=== PATIENT | male | born 1950 | race Caucasian/White ===

== ENCOUNTER 2019-04-19 10:19 | Outpatient (CLI) | payer MEDICARE, SELFPAY ==
--- NOTE | 2019-04-19 10:29 | CT_ITS ---
WS: [id number] CT of the lumbar spine, additional two-dimensional coronal and sagittal imaging was obtained. 04/19/19 Clinical Data: INTERVERTEBRAL DISC DISORDER Comparison: MRI lumbar spine, 03/29/2019. DLP: 2109.[address] scans at [facility] use at least one of these dose optimization techniques: automat ed exposure control; mA and/or kV adjustment per patient size (includes targeted exams where dose is matched to clinical indication); or iterative reconstruction. Findings: Osteoarthritic change of the lumbar spine is present from L2 through L5. There is anterior and posterior osteoarthritic spurring at L2-L3, L3-L4 and L4-L5. There is degenerative disc disease a t L2-L3, L3-L4 and L5-S1. No compression fractures are seen. There is a retrolisthesis of L3 on L4 of 0.3 cm. The transverse processes and SI joints are nonremarkable. There is significant facet joint a rthritis from L2-L3 through L5-S1. There is atherosclerotic change of the abdominal aorta. There is a localized levoscoliosis of the lower lumbar spine from L2 through L5. T12-L1: No canal stenosis, disc bulge or foraminal narrowing is seen. L1-L2: There is minimal disc bulging with facet joint arthritis causing mild canal and foraminal sten osis. L2-L3: There is severe posterior degenerative arthritic change along with facet joint hypertrophy and arthritis causing canal and foraminal stenosis. L3-L4: There is retrolisthesis causing canal stenosis along with severe facet joint arthritis causing foraminal stenosis. L4-L5: There is posterior osteophyte formation causing canal stenosis along with degenerative arthrit is of the facet joints causing foraminal stenosis. L5-S1: Minimal disc bulging causes mild canal stenosis along with facet joint arthritis causing gina inal stenosis. CT/CT lumbar spine wo con* [id number] Impression: 1. Severe osteoarthritis of the vertebral bodies from L2 through L5 with accomp anying degenerative disc disease. 3. Retrolisthesis of 0.3 cm of L3 on L4. 3. Multilevel disc bulge, osteophyte formation and facet joint arthritis causin g canal and foraminal stenosis.
== END 2019-04-19 10:20 | disposition home or self-care (01) ==
LOC: RAD 10:24
PROVIDERS: Family Provider Family Medicine; PCP Family Medicine; Visit Provider Licensed Practical Nurse
DX: M51.17 Intervertebral disc disorders with radiculopathy, lumbosacral region (principal); M47.896 Other spondylosis, lumbar region; M51.26 Other intervertebral disc displacement, lumbar region; M25.78 Osteophyte, vertebrae
CPT/HCPCS: 72131

== ENCOUNTER 2019-04-23 09:53 | Outpatient (CLI) | payer MEDICARE, SELFPAY ==
--- NOTE | 2019-04-23 | XR_ITS ---
WS: [id number] CERVICAL SPINE TECHNIQUE: 3 views of the cervical spine CLINICAL INFORMATION: CERVICAL MYELOPATHY COMPARISON: None. FINDINGS: Straightening of the normal cervical lordosis. Normal C1-C2 articulation. Advanced spondylitic change s. Slight anterolisthesis C2 on C3 and C3 on C4 in neutral measuring 2.7 mm at C2-3 and 3.7 mm at C3- C4. No significant instability on flexion-extension. Multilevel moderate bony foraminal narrowing thr oughout the cervical spine with moderate to advanced facet arthropathy. XR/XR cervical spine min 6V [id number] IMPRESSION: 1. Straightening of the normal cervical lordosis with advanced spondylitic tenzin nges. 2. 2. 3 mm anterolisthesis C2 on C3 and C3 on C4. No significant instability. 3. Disc space narrowing worse at C5-C6 and C6-C7. 4. Multilevel moderate bony foraminal narrowing with moderate to advanced fac et arthropathy throughout the cervical spine.
== END 2019-04-23 09:54 | disposition home or self-care (01) ==
LOC: RADOUTREAD 11:10
PROVIDERS: Family Provider Family Medicine; PCP Family Medicine; Visit Provider Family Medicine
DX: G95.9 Disease of spinal cord, unspecified (principal); M47.892 Other spondylosis, cervical region; M50.00 Cervical disc disorder with myelopathy, unspecified cervical region

== ENCOUNTER 2019-04-23 10:14 | Outpatient (CLI) | payer MEDICARE, SELFPAY | END 2019-04-23 10:15 | disposition home or self-care (01) | LOC: RADWPI 04-24 09:36 | PROVIDERS: Family Provider Family Medicine; PCP Family Medicine; Visit Provider Family Medicine | DX: I73.9 Peripheral vascular disease, unspecified (principal); I71.4 Abdominal aortic aneurysm, without rupture ==

== ENCOUNTER 2019-05-02 10:33 | Outpatient (CLI) | payer MEDICARE, SELFPAY ==
--- NOTE | 2019-05-02 10:41 | MR_ITS ---
WS: [id number] MRI CERVICAL SPINE HISTORY: GERMAN SIGN PRESENT COMPARISON: None available. Straightening of the normal cervical lordosis. Advanced degenerative changes throughout the cervical spine. Disc space narrowing with osteophytes an d osteophytic ridging most significant at C4-C7. Abnormal signal in the cervical cord or myelomalacia . Abnormal signal begins at the C6 level. Extends over a length of 2.8 cm. Craniocervical junction, C1 and C2 relationship, odontoid process and soft tissues are normal. C2-C3: Diffuse osteophytic ridging and annular disc bulging. Central disc protrusion with moderate LE FT and mild RIGHT foraminal stenosis. C3-C4: Severe annular disc bulging with osteophytic ridging. Near complete effacement of CSF. Osteoph ytes extend into the foramen with facet arthropathy causing severe bilateral foraminal stenosis. Post erior displacement of the LEFT nerve roots. C4-C5: Marked osteophytic ridging and annular disc bulging and facet arthropathy. Central disc protru brian. Mild central stenosis and RIGHT foraminal stenosis. Severe LEFT foraminal stenosis and posterio r displacement of the nerve roots. C5-C6: Effacement of CSF due to combination of disc disease, facet disease and annular disc bulging. Severe central and bilateral foraminal stenosis. C6-C7: Severe osteophytic ridging, facet disease and disc disease. Severe central and bilateral gina inal stenosis. C7-T1: Osteophytic ridging and facet arthropathy. Mild bilateral foraminal stenosis. T1-T2: Annular disc bulging and osteophytes. Suspect mild foraminal stenosis. Paraspinal soft tissue are normal. MR/MR cervical spin wo con* [id number] IMPRESSION: 1. Severe spondylitic changes throughout the cervical spine. Multilevel stenos es due to combination of facet disease, osteophytes and disc bulging. 2. Cervical myelomalacia extends over length of 2.8 cm centered at the C6-7 le brennen. 3. Severe central and bilateral foraminal stenosis at C5-6 and C6-7 due to com bination of disc disease, facet and osteophyte disease. 4. Severe LEFT foraminal stenosis at C4-5. 5. Severe bilateral foraminal stenosis at C3-4. 6. Moderate LEFT foraminal stenosis at C2-3. Mild central and RIGHT foraminal stenosis at C4-5.
== END 2019-05-02 10:34 | disposition home or self-care (01) ==
LOC: RADSHAW 10:36
PROVIDERS: Family Provider Family Medicine; PCP Family Medicine; Visit Provider Family Medicine
DX: M47.892 Other spondylosis, cervical region (principal); G95.89 Other specified diseases of spinal cord; M48.02 Spinal stenosis, cervical region; R29.2 Abnormal reflex
CPT/HCPCS: 72141

== ENCOUNTER 2019-05-06 09:15 | Outpatient (CLI) | payer MEDICARE, SELFPAY ==
--- NOTE | 2019-05-06 09:32 | CT_ITS ---
WS: [id number] CTA ABDOMINAL AORTA WITH RUNOFF TECHNIQUE: Contrast enhanced CTA of the abdominal aorta with bilateral lower extremity runoff. Multip lanar reformatted images were obtained. MIP reformats were also reviewed. CLINICAL INFORMATION: PERIPHERAL ARTERY DISEASE COMPARISON: None. DLP: 1449.[address] scans at [facility] use at least one of these dose optimization techniques: automat ed exposure control; mA and/or kV adjustment per patient size (includes targeted exams where dose is matched to clinical indication); or iterative reconstruction. FINDINGS: Lung bases are well aerated. Diffuse fatty infiltration liver. Portal vein and splenic vein are patent. Normal spleen. Small esophageal hiatal hernia. Adrenal glands are normal. Bilateral dain l cysts. Large left renal calculus measuring 19 mm. No hydronephrosis. Celiac and SMA are patent at the origins with calcification. Both proximal renal arteries are patent. Moderate to severe stenosis left renal artery origin. Aortic calcification. Small abdominal aortic a neurysm measuring 2.2 x 1.9 CM. Right POLY. Prostate calcification. RIGHT: Right common iliac artery is patent. External and internal iliac arteries are patent. Mild mitzy cified atheromatous disease. Right POLY degrades some images. Moderate to severe narrowing right commo n femoral artery at the level of the hip joint. Images are degraded in this area. Approximately 50% n arrowing at the right superficial femoral artery origin. SFA is somewhat diminutive but patent to the popliteal. Dense calcification in the popliteal artery at the adductor hiatus with multisegmental na rrowing. This is nearly occluded above the knee with a tiny patent popliteal to the trifurcation. Thr ee-vessel runoff to the ankle with a tiny anterior tibial component. LEFT: Left common iliac artery is patent. External and internal iliac arteries are patent. Common fem oral artery is patent. Approximately 40% narrowing at the SFA origin. Deep femoral artery is patent. Superficial femoral artery demonstrates mild to moderate segmental narrowing with a short segment of high-grade narrowing in the mid thigh. Superficial femoral artery remains patent to the adductor hiat us. Moderate to severe segmental narrowing involving the popliteal artery which appears patent to the trifurcation. Relatively normal three-vessel runoff to the ankle. 2. RIGHT: Moderate to severe stenosis involving the common femoral artery at the level of the femora l head. Images are degraded in this area due to artifact from hardware. 3. Approximately 40% narrowing at the RIGHT superficial femoral artery origin. SFA remains patent in the thigh. 4. Multisegment moderate to severe narrowing involving the RIGHT popliteal artery with near occlusio n ervft-ovc-lobe. 5. Three-vessel runoff to the RIGHT ankle with diminutive anterior tibial artery. 6. LEFT: Approximately 40% narrowing of the left SFA origin. High-grade stenosis in the left SFA in the mid thigh which remains patent. Moderate to severe multisegmental stenosis involving the poplitea l artery. 7. Three-vessel runoff to the LEFT ankle. 8. Moderate to severe stenosis left renal artery origin. Normal renal parenchymal enhancement bilate rally. Right renal artery origin is patent. CT/CT angio abd aorta runof [id number] IMPRESSION: 1. Slightly aneurysmal infrarenal abdominal aorta measuring 2.2 x 1.9 cm (AP b y transverse.
[2019-05-06 10:07] LABS: Blood Urea Nitrogen 16 mg/dL (8-23); Glomerular Filtration Rate 66.2 mL/min (90-130)
[2019-05-06] MEDS: iohexol 350 mg/mL 100 mL Btl IV (10:08)
== END 2019-05-06 09:16 | disposition home or self-care (01) ==
LOC: RADWPI 09:20
PROVIDERS: Family Provider Family Medicine; PCP Family Medicine; Visit Provider Internal Medicine Cardiovascular Disease
DX: I73.9 Peripheral vascular disease, unspecified (principal); I71.4 Abdominal aortic aneurysm, without rupture
CPT/HCPCS: 75635; 82565; 84520; Q9967

== ENCOUNTER 2019-05-30 16:18 | Inpatient (IN) | payer MEDICARE, SELFPAY ==
--- NOTE | 2019-05-29 13:46 | ECG_ITS ---
Measurements Intervals [place] Rate: 90 P: 74 NC: 154 QRS: 62 QRSD: 82 T: 77 QT: 325 QTc: 399 SINUS RHYTHM No previous ECG available for comparison Electronically Signed On 05-29-2019 17:30:18 EQUIPMENT ANALYST by Barbara Aaron M.D. [email or web address]
[2019-05-29 13:47] VITALS: BMI 28.3
--- NOTE | 2019-05-29 13:55 | ANES.PREANE2 ---
Pre-Anesthetic Assessment Pre-Anesthetic Assessment: Height/Weight: Height 1.8 m Weight 92.079 kg Preop Diagnosis: vertebral fractures Proposed Procedure: Operation Date: 05/30/19 09:40 Proposed Procedures p C5-C6, C6-C7 ACDFF with C6 corpectomy ([id number]) M50.020(Not Applicable) - Dayday Clement MD s Corpectomy(Not Applicable) - Dayday Clement MD Familial anesthetic complications: Woke up slowly after anesthesia Social: Social History: No alcohol and No tobacco Comment: former smoker - quit 3 years ago Airway: Cervical ROM: WNL MP: 3 Dentition: False Pulmonary: Pulmonary: COPD Comments: used to wear oxygen CV/HEM: CV/HEM: HTN : : None reported Hepatic: Hepatic: None reported GI: GI: None reported Metabolic: Metabolic: DM Musc/skel: Musc/skel: Lower Back Pain Neuropsych: Neuropsych: None reported Anesthetic Plan: ASA status: 3 Anesthesia: General PFSH Anesthesia PFSH: Medical History (Updated 05/20/19 @ 10:18 by Dayday Clement MD) Cervical disc disorder with myelopathy of mid-cervical region Cervical spinal stenosis Diabetes Hypertension Spondylolisthesis of cervical region Surgical History (Updated 05/20/19 @ 10:14 by Dayday Clement MD) History of cholecystectomy History of lumbar surgery (~01/09/01) History of right hip replacement Family History (Updated 05/20/19 @ 10:03 by Susannah Whatley LPN) Mother Cancer Father CAD (coronary artery disease) Social History (Updated 05/20/19 @ 10:04 by Susannah Whatley LPN) Smoking and tobacco status: former smoker Alcohol intake: former Lives independently: Yes Household members: spouse Marital status: Current occupational status: retired Current occupation: retired Data Anesthesia Cardiac Studies: No Data to Display
[2019-05-30] VITALS (22 sets, daily range): BP systolic 115–160; BP diastolic 49–85; PULSE 91–105; RESP 16–20; TEMP 36.2–37.1; O2SAT 88–97
[2019-05-30] MEDS: sodium chloride 0.9% 1,000 ML 30 ML IV (08:36)
[2019-05-30 10:03] LABS: Glucose Point of Care 156 mg/dL (70-110)
--- NOTE | 2019-05-30 10:31 | W.PM.OPSUD ---
Surgery/Procedure H&P Update DATE OF PROCEDURE: May 30, 2019 DATE H&P PERFORMED: 05/20/19 H&P UPDATE INFORMATION: I have reviewed H&P completed within last 30 days PREOP DIAGNOSIS: Intervertebral disc disorder with myelopathy, mid cervical region PRIMARY INDICATION FOR PROCEDURE: Neck pain and upper extremity symptoms PLANNED PROCEDURE: Operation Date: 05/30/19 09:40 Proposed Procedures C5-C6, C6-C7 ACDFF with C6 corpectomy ([id number]) M50.020(Not Applicable) - Dayday Clement MD
--- NOTE | 2019-05-30 11:04 | P.OP_ITS ---
Brief Operative Note: Date of procedure: 05/30/19 Pre-op diagnosis: Intervertebral disc disorder with myelopathy Post-op diagnosis: same (with instability of joint and collapse of vertebra) Procedure Done: C6 corpectomy, C5-C7 anterior fusion/fixation, Bengal Cage prosthesis Surgeon: Dayday Clement Estimated blood loss (mL): 100 Complications: None Post-op Plan: PACU, then surgical cardoza Condition: stable Disposition: PACU Coding Level of Care Code Acute Topographical Surveyor for Rody Tucker
--- NOTE | 2019-05-30 11:13 | XR_ITS ---
WS: [id number] XR cervical spine 1Vport [id number] REASON FOR EXAM: surgery FINDINGS: Lateral localization projection shows a marker at the C4-5 level. XR/XR cervical spine 1Vport 92345 IMPRESSION: Marker at the C4-5 level.
--- NOTE | 2019-05-30 11:47 | XR_ITS ---
WS: [id number] XR cervical spine 1Vport [id number] REASON FOR EXAM: SURGERY FINDINGS: Lateral intraoperative localization views show a marker at the C5-6 level the remaining lat eral cervical spine essentially normal the endotracheal tube is seen in good position. XR/XR cervical spine 1Vport [id number] IMPRESSION: Intraoperative marker C5-C6 level anteriorly.
--- NOTE | 2019-05-30 11:49 | SUR.OPER ---
Family Notified Of Patient's Status Via Phone.
--- NOTE | 2019-05-30 13:37 | SUR.OPER ---
Family Notified Of Patient's Status Via Phone.
--- NOTE | 2019-05-30 14:06 | XR_ITS ---
WS: [id number] XR cervical spine 1Vport [id number] REASON FOR EXAM: surgery FINDINGS: The interspace C5 and C6 is localized with a lateral projection interoperative spacers appe ar to be evident now. XR/XR cervical spine 1Vport [id number] IMPRESSION: Successful dilatation interspace C5-C6.
--- NOTE | 2019-05-30 14:53 | XR_ITS ---
WS: [id number] XR cervical spine 1Vport [id number] REASON FOR EXAM: surgery FINDINGS: Intraoperative lateral of the cervical spine now shows a spacer present between C5 and 6 wi th fusion anteriorly C5-C6-C7 the plate is satisfactory alignment. XR/XR cervical spine 1Vport 56449 IMPRESSION: Anterior fusion C5-C6-C7.
--- NOTE | 2019-05-30 15:27 | XR_ITS ---
WS: [id number] XR cervical spine 3V* [id number] REASON FOR EXAM: postop FINDINGS: Postop evaluation shows the plate across the C5-C6-C7 with intraspinal fusion. The alignmen t is satisfactory through these areas. There is spurring seen between C4 and 5 anteriorly but the overall alignment of the cervical spine is normal. XR/XR cervical spine 3V* [id number] IMPRESSION: Postop interspinal fusion C5-C6-C7 with intraspinal spacers.
[2019-05-30 15:40] LABS: Glucose Point of Care 155 mg/dL (70-110)
[2019-05-30] MEDS: fentaNYL 50 mcg/mL INJ 2mL IVP ×2 (15:58→16:03)
[2019-05-30] MEDS: ketorolac 30 mg/mL INJ 15 MG IVP ×2 (16:05→20:53)
--- NOTE | 2019-05-30 16:19 | SUR.PHASEI ---
1530 PT TO PACU AWAKE RESTLESS TRYING TO SIT UP PT CONFUSED BUT REORIENTS EASILY WANTS TO VOID, PT REMINDED OF MEYER CATH RECENTLY REMOVED PT ASSISTED TO RELAX AND LAY STILL. VSS NECK DRESSING D/I NO BLEEDIND OR SWELLING NOTED C COLLAR IN PLACE PT ABLE TO MOVE ALL EXT TO COMMAND, 1540 PT C/O OF NO NECK PAIN BUT RT SHOULER PAIN WITH MOVEMENT ONLY 1550 X RAY HERE PT VERY ALERT ORIENTED AND ASSISTED WARM BLANKETS TO RT SHOULDER PT C/O OF PAIN , NOW WITHOUT MOVING AFTER X RAY SEE MEDS GIVEN 1600CRNA W. SMART AT BEDSIDE SEE TORDOL ORDER, 1615 PT ALERT MORE RELAXED TAKING OCC ICE CHIPS ATTEMPTED TO CALL REPORT TO FLOOR,
--- NOTE | 2019-05-30 18:46 | P.PN_ITS ---
Subjective Subjective: Interval history: I am sore. Reports paresthesias in left hand. Vitals/I&O/Wt Last Vital Signs Temp 98.4 F 05/30/19 18:42 Pulse 103 H 05/30/19 18:42 Resp 18 05/30/19 18:42 BP 149/72 05/30/19 18:42 Pulse Ox 89 L 05/30/19 18:42 05/30/19 05/30/19 05/30/19 06:59 14:59 22:59 Intake Total 1000 / 1000 340 / 1340 Output Total 500 / 500 Balance 1000 / 1000 -160 / 840 Weight last 48 hrs Weight 203 lb Physical Exam Const: COMMON NORMALS: no apparent distress GENERAL APPEARANCE: cooperative and comfortable Eye: ALIGNMENT: Yes alignment normal Neck/C-Spine: CERVICAL SPINE: Yes collar present NECK IMAGES: 1. surgical incision Resp: COMMON NORMALS: normal respiratory effort EFFORT & INSPECTION: Yes able to speak in complete sentences and No stridor Extremity: LEFT UPPER EXTREMITY: Yes hand & digits (chronic deformities) Neuro: COMMON NORMALS: moves all extremities Psych: COMMON NORMALS: mental status grossly normal, thought process normal and speech normal APPEARANCE: Yes grossly normal ATTITUDE: Yes calm and Yes engaged ACTIVITY/MOTOR BEHAVIOR: Yes appropriate eye contact SPEECH: Yes normal speech MOOD & AFFECT: Yes euthymic mood THOUGHT PROCESS: normal thought process ATTENTION/CONCENTRATION: Yes attention grossly intact INSIGHT: insight good JUDGEMENT: judgment good Skin: WOUNDS: Yes surgical site (left anterolateral neck dressing with scant serosanguineous drainage) Details: other (Dressing changed at bedside. No active drainage or incisional fullness.) Urinary Catheter Management^: Sadler: Cath Placed During This Visit: yes, but has since been removed by the nurse Urinary Catheter Date of Insertion: 05/30/19 Urinary Catheter Time of Insertion: 11:30 Date Urinary Catheter Removed: 05/30/19 Time Urinary Catheter Discontinued: 15:28 Data Other Xray: I personally reviewed and interpreted this imaging study as follows: (C- spine x-rays) My impression: Postop changes of recent C6 corpectomy and C5-C7 fusion/fixation. Limited visualization caudally on lateral view. No noted complication. A&P Assessment and plan (1) Cervical disc disorder with myelopathy of mid-cervical region: Doing well after C6 corpectomy and C5-C7 ACDFF performed earlier today. Suspect shoulder / neck discomfort is related to extended period in position utilized for surgery. Anticipate resolution. Left hand paresthesias will be monitored, and are likewise expected to resolve. Plan completion of postop IV antibiotic doses. Anticipate home tomorrow. Status: Chronic Code(s): M50.020 - Cervical disc disorder with myelopathy, mid-cervical region, unspecified level (2) Instability of joint: Status: Acute Code(s): M25.30 - Other instability, unspecified joint (3) Collapse of vertebra: Status: Acute Code(s): M48.50XA - Collapsed vertebra, not elsewhere classified, site unspecified, initial encounter for fracture Attestations Medical Necessity Statement*: Patient is appropriate for in hospital postoperative care. Coding Level of Care Code Acute Circulation Sales Representative for [facility] Fwd Exam Comprehensive Diagnoses Cervical disc disorder with myelopathy of mid-cervical region M50.020 Instability of joint M25.30 Collapse of vertebra M48.50XA Comment Postop global
[2019-05-30] MEDS: lisinopril 20 mg Tablet PO (19:01)
[2019-05-30] MEDS: docusate sodium 100 mg Capsule PO (19:01)
[2019-05-30] MEDS: HYDROcodone-acetaminophen 5-325 mg Tablet PO ×2 (19:02→23:09)
[2019-05-30] MEDS: cilostazol 100 mg Tablet 50 MG PO (19:53)
[2019-05-30] MEDS: baclofen 10 mg Tablet PO (19:58)
[2019-05-30] MEDS: lactated ringers 1,000 ML 90 ML IV (20:04)
--- NOTE | 2019-05-30 20:26 | PC.NURSE ---
Dressing to patient's neck is dry and intact. Hobbs J collar in place.
[2019-05-30 20:45] LABS: Glucose Point of Care 227 mg/dL (70-110)
[2019-05-31 00:18] VITALS: BP 108/47; PULSE 92; RESP 18; TEMP 36.9; O2SAT 91
[2019-05-31] MEDS: ketorolac 30 mg/mL INJ 15 MG IVP ×2 (02:59→08:45)
[2019-05-31] MEDS: HYDROcodone-acetaminophen 5-325 mg Tablet PO (03:47)
[2019-05-31 04:37] VITALS: BP 104/55; PULSE 84; RESP 18; TEMP 36.8; O2SAT 95
[2019-05-31] MEDS: lactated ringers 1,000 ML 90 ML IV (06:12)
[2019-05-31 06:39] LABS: Glucose Point of Care 221 mg/dL (70-110)
[2019-05-31 08:00] VITALS: BP 119/68; PULSE 76; RESP 18; TEMP 37.1; O2SAT 93
[2019-05-31] MEDS: cilostazol 100 mg Tablet 50 MG PO (08:42)
[2019-05-31] MEDS: atorvastatin 40 mg Tablet 80 MG PO (08:43)
[2019-05-31] MEDS: docusate sodium 100 mg Capsule PO ×2 (08:44)
[2019-05-31] MEDS: lisinopril 20 mg Tablet PO (08:44)
[2019-05-31 08:47] VITALS: PULSE 76; O2SAT 90
[2019-05-31 09:07] VITALS: PULSE 76; O2SAT 90
[2019-05-31 10:12] VITALS: PULSE 76; O2SAT 90
--- NOTE | 2019-05-31 10:54 | P.OP_ITS ---
Operative Report Date of procedure: May 30, 2019 Pre-op Diagnosis: Intervertebral disc disorder with myelopathy, mid cervical region Post-op diagnosis: same (With instability of joint and collapse of vertebra) Procedure Done: 1. C6 corpectomy. 2. C5-C7 placement of intervertebral prosthetic device. 3. C5-C7 anterior plate and screw fixation. 4. C5-C7 anterior fusion utilizing morselized autograft obtained from the osteophytectomy/corpectomy portions of the procedure. Implants: Synthes Vectra plate and screws. Bengal interbody Cage. Specimens removed/disposition: C5-C6, C6-C7 disc Surgeon: Dayday Clement Anesthesia: General Estimated blood loss (mL): 100 IV fluids (mL): 1,100 Urine output (mL): 400 Complications: None. Condition: stable Disposition: PACU Brief History: The patient is a 68-year-old white male with symptomatic, radiographically confirmed cervical disc/joint disease and associated neural impingement. He complained of gait instability, and predominantly right upper extremity symptoms. Imaging studies demonstrated prominent findings at C5-C6 a nd C6-C7, with encroachment posterior to C6. Conservative management did not provide adequate lasting symptom relief. After review of the diagnostic and treatment options with the risks, potential benefits and rationale for each, the patient requested to proceed with surgical intervention. Procedure: After routine preoperative evaluation and informed consent were obtained, the patient was taken to the Operating Room and placed under general endotracheal anesthesia. He was positioned supine and fit in the [place] tongs for the application of in-line cervical traction. The anterolateral neck on the left was prepared with hair clippers. A proposed transverse skin incision was marked with a sterile skin marker, utilizing intraoperative radiography and regional anatomy for localization. The area was scrubbed with Betadine, prepped with DuraPrep, and draped with sterile towels and drapes. [place] surgical barrier was applied. The proposed incision site was infiltrated with 1% Xylocaine with Epinephrine. A skin incision was made and carried down into the subcutaneous tissues. The platysma was identified and divided in the direction of its fibers. A plane was dissected just medial to the carotid sheath and lateral to the midline esophagus and trachea. Prevertebral soft tissues were bluntly dissected free of the anterior margin of the cervical spine. Longus coli muscles were freed from their medial attachments. Deep self-retaining retractors were placed. Intraoperative radiography verified the desired surgical levels. The C5-C6 and C6-C7 interspaces were sequentially incised with a #11 blade. Discectomies were accomplished utilizing various curettes and pituitary rongeurs. Anterior marginal osteophytes were resected with the [place] and [place] rongeurs. Cartilaginous end plates were stripped free with curettes. Posterior marginal osteophytes were resected with thin foot plate Kerrison rongeurs. The medial aspects of the neural foramina were enlarged in a similar manner. Posterior longitudinal ligament was divided and resected as necessary to further the decompression. Due to extensive bony overgrowth of the disc space and marginal osteophyte contribution to neural impingement, the [employer] [place] high- speed drill with ely valenitn was utilized to complete the osteophytectomy portions of the procedure. Probing posterior to the C6 vertebral body confirmed residual canal compromise. The decision was made to proceed with a corpectomy. A corpectomy was completed utilizing various rongeurs and the [employer] Hunter high-s peed drill with ely bur. The drill was also utilized for endplate preparation. Once the decompression was felt to be adequate, the corpectomy defect was sized. A 24 mm lordotic Synthes Bengal Cage was chosen. The Cage was packed with morselized autograft obtained from the osteophytectomy portions of the procedure. The Cage was placed within the corpectomy defect while in-line cervical traction was applied via the [place] tongs. Once the Cage was felt to be in good position, a Synthes Vectra plate of the desired size was chosen. The plate was bent to match the curvature of the patient's cervical spine utilizing the plate merchant. The plate was secured to the C5 and C7 vertebral bodies with bilateral 4.5 mm x 16 mm self-drilling screws. Final screw tightening was performed, and the locking mechanisms within the plate were noted to engage the screws at each site. The construct was inspected, radiographically evaluated, and felt to be in good position and secure. The wound was copiously irrigated with sterile saline and antibiotic irrigation. Hemostasis was ensured with the bipolar electrocautery and Surgi-Jim hemostatic matrix. Wound closure was performed in multiple layers with 2-0 Vicryl Plus simple interrupted closure of the platysma and deep dermis as separate layers. Final skin closure was performed with 4-0 Vicryl Plus in a running subcuticular pattern. Steri-Strips were applied, and a sterile dressing was placed. The patient was released from the [facility] and fit in a [place] collar. He was transferred onto the Recovery Room cart in the supine position. He was extubated without incident. The patient tolerated the procedure well. All sponge, needle, and instrument counts were correct at the completion of the procedure.
--- NOTE | 2019-05-31 11:18 | P.DS_ITS ---
Discharge Providers Date of Admission: 05/30/19 16:18 Date of Discharge: May 31, 2019 Attending Provider at Admission: Dayday Clement MD Attending Provider at Discharge: Dayday Clement MD Primary Care Provider: Jason Mcdaniel MD Diagnoses at Discharge Discharge Diagnosis (1) Cervical disc disorder with myelopathy of mid-cervical region: Status: Chronic Problem details: Patient is doing well after C6 corpectomy with C5-C7 anterior fusion/fixation performed yesterday. He reports resolution of the left hand paresthesias reported yesterday evening. He appears reasonable for discharge home today, as requested. (2) Instability of joint: Status: Acute (3) Collapse of vertebra: Status: Acute Reason for Visit Reason for Visit: Reason For Visit: M50.020 Brief History: The patient is a 68-year-old white male with symptomatic, radiographically confirmed cervical disc/joint disease and associated neural impingement. He complained of gait instability, and predominantly right upper extremity symptoms. Imaging studies demonstrated prominent findings at C5-C6 and C6-C7, with encroachment posterior to C6. Conservative management did not provide adequate lasting symptom relief. After review of the diagnostic and treatment options with the risks, potential benefits and rationale for each, the patient requested to proceed with surgical intervention. Hospital Course Hospital Course: The patient underwent a C6 corpectomy, with C5-C7 anterior fusion and fixation, on 05/30/2019. He tolerated the procedure well, and reported improvement in preoperative symptoms following surgery. He complained of neck/shoulder stiffness and pain, and left hand paresthesias on the evening of the date of surgery. The paresthesias had resolved and the pain/stiffness had significantly improved by the morning of postoperative day #1. He completed preoperative and postoperative intravenous antibiotic doses, and the physical therapy postoperative spine protocol. He was ambulatory, voiding, and tolerating a diabetic diet prior to discharge home. Physical Exam Const: COMMON NORMALS: no apparent distress GENERAL APPEARANCE: cooperative and comfortable Eye: ALIGNMENT: Yes alignment normal Neck/C-Spine: CERVICAL SPINE: Yes collar present NECK IMAGES: 1. surgical incision Resp: COMMON NORMALS: normal respiratory effort EFFORT & INSPECTION: Yes able to speak in complete sentences and No stridor Neuro: COMMON NORMALS: moves all extremities GAIT: Yes other (Ambulates unassisted) MOTOR EXAM: strength 5/5 throughout (Bilateral upper extremities) Psych: COMMON NORMALS: mental status grossly normal and speech normal AT TITUDE: Yes calm and Yes engaged ACTIVITY/MOTOR BEHAVIOR: Yes appropriate eye contact SPEECH: Yes normal speech MOOD & AFFECT: Yes euthymic mood INSIGHT: insight good JUDGEMENT: judgment good Skin: WOUNDS: Yes surgical site (Left anterolateral neck surgical site dressing clean/dry/intact) Urinary Catheter Management^: Sadler: Cath Placed During This Visit: yes, but has since been removed by the nurse Urinary Catheter Date of Insertion: 05/30/19 Urinary Catheter Time of Insertion: 11:30 Date Urinary Catheter Removed: 05/30/19 Time Urinary Catheter Discontinued: 15:28 Discharge Data Data Completed and Pending: Completed Studies During Hospitalization Category Date Time Status XR cervical spine 1 view portable [ XR cervical spine Exams 05/30/19 11:13 Completed 1Vport 25383] Rou michael XR cervical spine 1 view portable [ XR cervical spine Exams 05/30/19 11:47 Completed 1Vport 28897] Rou michael XR cervical spine 1 view portable [ XR cervical spine Exams 05/30/19 14:06 Completed 1Vport 35025] Rou michael XR cervical spine 1 view portable [ XR cervical spine Exams 05/30/19 14:53 Completed 1Vport 92665] Rou michael XR cervical spine 3V* [id number] Routine Exams 05/30/19 15:27 Completed Pending at discharge Category Date Time Status Pathology: Surgic al [PTH] Routine Pth 05/30/19 15:36 Received Labs from last 24 hours 05/31/19 05/30/19 05/30/19 06:34 20:40 15:37 POC Glucose 221 227 155 Vitals: Last Vital Signs Temp 98.8 F 05/31/19 08:00 Pulse 76 05/31/19 10:12 Resp 18 05/31/19 08:00 BP 119/68 05/31/19 08:00 Pulse Ox 90 05/31/19 10:12 Discharge Plan Discharge Patient Disposition: Home, Self-Care Condition: Stable Prescriptions: New Onia 10-325 mg tablet 1 tab PO Q4H MDD 5 tabs PRN (Reason: pain) Qty: 30 RF: 0 Continued baclofen 10 mg tablet 10 mg PO BID PRN (Reason: pain') RF: 0 atorvastatin 80 mg tablet 80 mg PO DAILY RF: 0 metformin 500 mg tablet 500 mg PO BID RF: 0 benazepril 20 mg tablet 20 mg PO BID RF: 0 docusate sodium [Colace] 100 mg capsule 100 mg PO DAILY RF: 0 Complete Multivitamin Tablet 1 tab PO DAILY RF: 0 Anoro Ellipta 62.5-25 mcg/actuation blister with device 1 ea INHALATION DAILY RF: 0 Held tramadol 50 mg tablet 50 mg PO BID PRN (Reason: Pain) RF: 0 Hold Instructions: Resume on 06/03/19. Hold while taking hydrocodone cilostazol 50 mg tablet 50 mg PO BID RF: 0 Hold Instructions: Resume on 06/02/19. Discharge Orders: Discharge Order (Routine); Ordered 05/31/19 Ordered By: Dayday Clement Other Ambulatory Orders: XR cervical spine 3V* [id number] (Routine) Timeframe: 2 Weeks Facility: [facility] - Location: Radiology [facility] Ordered By: Dayday Clement Referrals: Dayday Clement MD [Physician] - 2 weeks (You have a follow up on June 12 @ 1pm.) Discharge Diet: Diabetic Discharge Activity: Limit activity as instructed Patient Instructions: Hydrocodone/Acetaminophen (By mouth), Cervical Spinal Stenosis (DC), Cervical Radiculopathy (GEN), Degenerative Disc Disease (DC) Activity Restrictions/Additional Instructions: Activity -Cervical fusion: Wear cervical collar 24 hours a day. Change as necessary for showering, shaving, or if it becomes soiled. -No lifting or reaching overhead. - No driving until office followup visit - No lifting/pushing/pulling over 10 pounds - Avoid twisting or bending - Walking is encouraged - Home exercise per physical therapist - You may engage in sexual intercourse at any time as long as it is comfortable for you - Check with your doctor before returning to work. Notify your doctor if you develop: - temperature of 101.5 degrees F. or higher - redness or swelling of the incision - Foul drainage - increasing pain - increasing numbness or tingling in the arms or legs - New or increasing problems with vision, balance, memory, speaking, nausea or vomiting Hygiene: - Showering is okay - No tub baths or soaking Other: Remove outer bandage 3 days after surgery. If you have paper strips, leave in place until they fall off on their own. If you have stitches, keep your incision dry until the stitches are removed. Your doctor's office is available to answer any questions from 7 AM to 5:00 PM, Monday through at [phone]. After hours, go to the emergency room at [facility] or call 911 for assistance. Discharge Date/Time: 05/31/19 10:14 Discharge Attestations Time Spent in Discharge Care*: other (Postop global) Quality Metrics Clinical Quality Measures During this hospital stay, did patient experience: None Coding Level of Care Code Acute Guest Experience Captain for [facility] Fwd Exam Detailed Diagnoses Cervical disc disorder with myelopathy of mid-cervical region M50.020 Instability of joint M25.30 Collapse of vertebra M48.50XA Comment Postop global
== END 2019-05-31 10:14 | disposition home or self-care (01) | DRG 472 ==
LOC: MEDSURG 05-31 08:41
PROVIDERS: Admitting Provider Specialist; Family Provider Family Medicine; PCP Family Medicine; Visit Provider Specialist
PROC: 0RB30ZZ Excision of Cervical Vertebral Disc, Open Approach (ICD-10-PCS; CPT 22551; principal; 2019-05-30 09:40)
PROC: 0RG20A0 Fusion of 2 or more Cervical Vertebral Joints with Interbody Fusion Device, Anterior Approach, Anterior Column, Open Approach (ICD-10-PCS; CPT 20936; 2019-05-30 09:40)
DX: M50.022 Cervical disc disorder at C5-C6 level with myelopathy (principal); M48.50XA Collapsed vertebra, not elsewhere classified, site unspecified, initial encounter for fracture; M25.30 Other instability, unspecified joint; E11.9 Type 2 diabetes mellitus without complications; Z79.84 Long term (current) use of oral hypoglycemic drugs; I10 Essential (primary) hypertension; Z82.49 Family history of ischemic heart disease and other diseases of the circulatory system; Z87.891 Personal history of nicotine dependence; J44.9 Chronic obstructive pulmonary disease, unspecified
CPT/HCPCS: 20936; 22554; 63081; 12345; 36416; 51702; 72020; 72040; 82962; 88304; 93005; 96372; 96375; 97161; 97530; C1713; G0378; J0690; J1815; J1885; J2370; J2704; J3010; J3490; J7030; L0172; L0174

== ENCOUNTER 2019-06-13 12:30 | Outpatient (CLI) | payer MEDICARE, SELFPAY ==
--- NOTE | 2019-06-13 12:42 | XR_ITS ---
WS: [id number] CERVICAL SPINE TECHNIQUE: 3 views of the cervical spine CLINICAL INFORMATION: Postop followup COMPARISON: None. FINDINGS: Anterior cervical fusion C5-C7 with corpectomy and interbody fusion graft. Postoperative cervical fus ion appears stable. XR/XR cervical spine 3V* [id number] IMPRESSION: Stable anterior cervical fusion C5-C7 with corpectomy and interbody fusion graf hoffman
== END 2019-06-13 12:31 | disposition home or self-care (01) ==
LOC: RADWPI 12:36
PROVIDERS: Family Provider Family Medicine; PCP Family Medicine; Visit Provider Specialist
DX: Z98.1 Arthrodesis status (principal)
CPT/HCPCS: 72040

== ENCOUNTER 2019-07-11 08:53 | Outpatient (CLI) | payer MEDICARE, SELFPAY ==
--- NOTE | 2019-07-11 09:01 | XR_ITS ---
WS: [id number] CERVICAL SPINE TECHNIQUE: 3 views of the cervical spine CLINICAL INFORMATION: s/p cervical spinal fusion COMPARISON: June 13, 2019 FINDINGS: Straightening of the normal cervical lordosis. Anterior cervical fusion with interbody fusion graft C 5-C7 with partial corpectomy and interbody fusion at C6. Hardware appears in good position. Preverteb ral soft tissue edema normal for postoperative purposes. Moderate to advanced facet arthropathy throu ghout the cervical spine. XR/XR cervical spine 3V* [id number] IMPRESSION: 1. Normal postoperative ACF C5-C7 with interbody fusion graft and partial parvin ectomy.
== END 2019-07-11 08:54 | disposition home or self-care (01) ==
LOC: RADWPI 08:56
PROVIDERS: Family Provider Family Medicine; PCP Family Medicine; Visit Provider Licensed Practical Nurse
DX: Z98.1 Arthrodesis status (principal)
CPT/HCPCS: 72040

== ENCOUNTER 2019-08-06 09:44 | Outpatient (CLI) | payer MEDICARE, SELFPAY ==
--- NOTE | 2019-08-06 10:00 | CT_ITS ---
WS: [id number] CT CERVICAL SPINE TECHNIQUE: Noncontrast CT of the cervical spine with coronal and sagittal reformatted images. CLINICAL INFORMATION: S/P CERVICAL SPINAL FUSION COMPARISON: MRI May 02, 2019 DLP: 1999.[address] scans at [facility] use at least one of these dose optimization techniques: automat ed exposure control; mA and/or kV adjustment per patient size (includes targeted exams where dose is matched to clinical indication); or iterative reconstruction. FINDINGS: Straightening of the normal cervical lordosis. Anterior interbody cervical fusion C5-C7 with partial corpectomy at C6. Hardware appears in good position well seated. Spinal canal narrowing is improved c ompared to the prior MRI. C2-C3: Disc osteophyte complex with endplate ridging. Moderate left and no significant right foramina l narrowing. Mild central canal stenosis. Moderate left facet arthropathy. C3-C4: Disc osteophyte complex with endplate ridging. Mild central canal stenosis. Moderate to severe left and no significant right foraminal narrowing. Advanced left facet arthropathy. C4-C5: Disc osteophyte complex with mild central canal stenosis. Mild bilateral bony foraminal narrow ing. Moderate facet arthropathy. C5-C6: Postoperative changes anterior cervical fusion. Moderate to severe right greater than left bon y foraminal narrowing. Endplate ridging. Mild central canal stenosis. C6-C7: Partial corpectomy with anterior cervical fusion. Severe bilateral bony foraminal narrowing. S stephanie canal is patent. C7-T1: Disc osteophyte complex with endplate ridging. Mild to moderate left and no significant right foraminal narrowing. Moderate right facet arthropathy. Mild central canal stenosis. Moderate bilateral T1-[address]/CT cervical spin wo con* [id number] IMPRESSION: 1. Satisfactory postoperative anterior cervical fusion C5-C7 with partial parvin ectomy at C6. Hardware appears in good position. 2. Spinal canal stenosis has improved compared to the prior MRI. 3. Multilevel bony foraminal narrowing described above.
== END 2019-08-06 09:45 | disposition home or self-care (01) ==
LOC: RADWPI 09:50
PROVIDERS: Family Provider Family Medicine; PCP Family Medicine; Visit Provider Licensed Practical Nurse
DX: Z98.1 Arthrodesis status (principal); M43.22 Fusion of spine, cervical region
CPT/HCPCS: 72125

== ENCOUNTER → 2019-10-10 09:28 | Outpatient (BNVA) | payer MEDICARE, SELFPAY | PROVIDERS: Family Provider Family Medicine; PCP Family Medicine; Visit Provider Internal Medicine Cardiovascular Disease | DX: I73.9 Peripheral vascular disease, unspecified (principal) | CPT/HCPCS: 80048; 85025; 87635 ==

== ENCOUNTER 2019-10-15 11:57 | Observation (INO) | payer MEDICARE, SELFPAY ==
[2019-10-14 11:05] VITALS: BMI 27.1
[2019-10-15] VITALS (49 sets, daily range): BP systolic 116–166; BP diastolic 59–116; PULSE 74–105; RESP 13–24; TEMP 36.6–37; O2SAT 90–96
[2019-10-15] MEDS: diphenhydrAMINE 50 mg Capsule PO (09:58)
--- NOTE | 2019-10-15 10:00 | XACV_ITS ---
Wt: 89 kg BSA: 2.12 m2 Gender: Male : 1950 Exam Type: Invasive Peripheral Vascular Procedure(s): Procedure Description: Peripheral Cath Diagnostic Procedure Procedure Description: Peripheral vascular Intervention Procedure Description: PV Balloon Procedure Description: PV Atherectomy Exam Priority: Routine Lower Extremity Interventional Findings Right common femoral artery approach was adopted. After crossing right SFA/ popliteal lesion which is highly calcified occluded artery reconstitute at the popliteal vessel. Viper wire was exchanged using [employer] atherectomy 2.0 bur atherectomy was performed in mid left Popliteal artery, it was later treated with [place] 340 mm balloon. Left distal SFA then was also treated with ARMADA 5100mm. Please see inventory for balloon size length and inflation timings. Dissection which was [id number] was noted in the mid popliteal lesion since it is not flow-limiting therefore we will leave it. Good three-vessel runoff was noted below the left knee. Excellent angiographic result was obtained. 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 Procedure #1 Abdominal aorta: Luminal irregularities#2 Right renal artery has luminal irregularities. Left renal artery has luminal #3 Right common iliac artery has luminal irregularity#4 Left common iliac artery has luminal irregularity #5 Left and right internal iliac artery has luminal irregularity#7 Right and left internal iliac artery has luminal irregularity#8 Left and right common femoral artery is luminal irregularity#9 Left and right profunda femoral artery has luminal irregularity#10 Right SFA has distal 80 to 90% highly calcified eccentric stenosis#11 Left SFA has moderate to severe 70 to 80% calcified lesion#12 Right popliteal artery has luminal irregularity, left popliteal artery has eccentric 90% highly calcified small lesion at knee joint. It is a flow-limiting lesionLeft and right tibioperoneal trunk has luminal irregularitiesLeft anterior tibial artery has luminal irregularity with proximal to mid mild to moderate lesionLeft peroneal artery has diffuse luminal irregularitiesLeft posterior tibial has proximal to mid subtotal occlusion which is chronic however it reconstitute in the middle through collaterals.Right tibioperoneal trunk has luminal irregularitiesRight posterior tibial and peroneal artery has luminal irregularitiesRight anterior tibial artery appeared to be chronically occluded. Recommendations 1-Return to inpatient for close monitoring and routine cath care 2-Risk factor modification for secondary prevention 3-Statin and aspirin 81 mg life--long, if tolerated 4-Patient was pre-loaded with 300 mg of Plavix, continue Plavix 75mg p.o. daily for three months. 5-Continue optimal medical management 6-Follow up with Dr. Hu in four weeks and your primary care in 10 days. Hemodynamic Data Phase:Rest AO : 119.0 mmHg / 58.0 mmHg ( 81.0 mmHg ) @ 6:14:00 AM Access Site Site: Right Femoral artery Sheath Size: 6 Fr Hemost... Success: Unsuccessful Procedure Details Findings Procedure Consent Obtained. Pre-Procedure Time Out. Identified patient by full name and date of as verbalized by the patient/guarantor. Does the consent match the physician's order: Yes. Accurate & Complete Informed Consent: Yes. Inpatient/Outpatient History & Physical on Chart: Yes. If H&P is completed, is and addenduem needed: Yes; If yes, is the addendum complete: Yes. Visualize and Verify Site with Patient/Guarantor: N/A. Relevant Radiology Images available: N/A. The risks, benefits, and alternatives of sedation and/or procedure were discussed by physician. The patient agrees to continue. Procedure started. Current diagnosis: PVD. PERRLA. Strong, equal hand fashion marketer bilaterally. Lungs clear x 5 lobes. IV Site on Arrival: 18 gauge in the left anticubital. IV Fluids: 0.9% NaCl at KVO. 0 mL infused prior to fence laborer. Oxygen started at 2liters/min via nasal canula. Pre Procedural Pulses: right dorsalis pedis was 1+. Pre Procedural Pulses: right posterior tibial was 1+. Pre Procedural Pulses: left dorsalis pedis was 2+. Pre Procedural Pulses: left posterior tibial was 2+. bilateral groins was prepped with chloroprep then draped in the usual sterile fashion. Baseline sample Acquired. HR: 89 BPM. Physician notified. Patient's family unavailable. Equipment: 6F - Femoral. Physician arrived. Patient has no known drug allergies. Patient meds: Oliver inhibitor, Statin. Physician scrubbed in. Immediate Pre-Procedure Time Out. Correct Patient: Yes; Correct Procedure: Yes; Correct Site: Yes; Correct Patient Position: Yes; Correct Supplies: Yes; Dried Flammable Prep: Yes; Blood Products Available: N/A;. Lidocaine 1% infiltrated to the right groin. Arterial access obtained with micropuncture set. wire did not advance - wire and needle are out. A 5FrFr UF catheter in over wire. and seated in the distal aorta wire out. Abdominal aortogram performed in AP @ 10 mL/sec for a total of 30 mL. [place] wire inserted and the UF catheter removed. Exchanging the short 6 Fr sheath for a long 6r Fexor sheath. RIM catheter inserted - left leg runoff performed 10ml for a total of 30ml. left leg digital subtraction views obtained x 2. RIM removed and the Seeker inserted over the glide wire seated in the left lower leg. glide wire out andf the Viper wire inserted. Seeker out and the Viper valentin inserted. orbital atherectomy performed. valentin removed. Inflation number : 1 A AB ARMADA 14 OTW [id number] was prepped and advanced across the Mid Popliteal, Left , then inflated to 10 SHIV for 1:00 seconds. balloon removed. Side port of sheath attached to Normal Saline flush at KVO to maintain patency. Inflation number : 1 A AB ARMADA 35 OTW [id number] was prepped and advanced across the Distal Femoral, Left , then inflated to 12 SHIV for 1:02 seconds. Inflation number: 2 The AB ARMADA 35 OTW [id number] was reinflated across the Distal Femoral, Left, to 16 SHIV for 1:01 seconds. balloon back. checking results , 10ml for a total of 30ml left leg runoff. balloon and Viper wire out. checking results. inserting the Viper wire. Inflation number: 2 The AB ARMADA 14 OTW [id number] was reinflated across the Mid Popliteal, Left, to 14 SHIV for 1:28 seconds. balloon out wire out. exchanging the 6 Fr long Flexor sheath for the short 6 Fr sheath. Sheath(s) sutured into position with 2-0 silk and sterile 4x4's and Op-site applied over the site. No oozing or signs and symptoms of hematoma noted. Arterial sheath flushed and connected to tranducer and pressure bag with heparinized saline. Post Procedure: Pulses reassessed and unchanged. PERRLA. Strong, equal hand fashion marketer bilaterally. No VTE prophylaxis required. Medication's Wasted: Heparin = 2000 mL. Medication's Wasted: Lidocaine 1% = 0 mL. Medication's Wasted: Nitro = 49.55 mg. Medication's Wasted: Verapamil = 4 mg. Total IV fluids: 95.8 mL. right leg runoff performed through the sheath 10ml for a total of 30ml. Fluoro: 12:00. Contrast type used: Visipaque 320 mgI/mL, 500 mL bottle. [id number]. Post-op diagnosis: PVD. Complications: none. Estimated blood loss: 5mL-10mL. Procedure completed. Patient transferred by bed to ICU. Procedure Medications Start: 10:18 AM Stop: 10:18 AM Medication: Versed Amount: 1 mg Route: I.V. Start: 10:18 AM Stop: 10:18 AM Medication: Fentanyl Amount: 25 mcg Route: I.V. Start: 10:25 AM Stop: 10:25 AM Medication: Versed 1 mg and Fentanyl 25 mcg Amount: 1 Route: I.V. Start: 10:34 AM Stop: 10:34 AM Medication: Versed 1 mg and Fentanyl 25 mcg Amount: 1 Route: I.V. Start: 10:43 AM Stop: 10:43 AM Medication: Versed Amount: 1 mg Route: I.V. Start: 10:47 AM Stop: 10:47 AM Medication: Fentanyl Amount: 25 mcg Route: I.V. Start: 10:52 AM Stop: 10:52 AM Medication: Heparin Amount: 5000 units Route: I.V. Start: 10:52 AM Stop: 10:52 AM Medication: Versed 1 mg and Fentanyl 25 mcg Amount: 1 Route: I.V. Start: 10:59 AM Stop: 10:59 AM Medication: Versed 1 mg and Fentanyl 25 mcg Amount: 1 Route: I.V. Start: 11:10 AM Stop: 11:10 AM Medication: Fentanyl Amount: 25 mcg Route: I.V. Start: 11:12 AM Stop: 11:12 AM Medication: Heparin Amount: 2000 units Route: I.V. Start: 11:13 AM Stop: 11:13 AM Medication: Nitrogylcerin Amount: 400 mcg Route: I.A. Start: 11:18 AM Stop: 11:18 AM Medication: Fentanyl Amount: 25 mcg Route: I.V. I, the attending physician, have reviewed and verified all procedure medications. Yes, all medications given per verbal order History/Risk Factors Hypertension: Yes Dyslipidemia: No Diabetic Therapy: Oral Peripheral Arterial Disease (PAD): Yes Myocardial Infarction (VA): No Obesity: No Renal Disease: No Tobacco Use: Former Prior Interventions PCI: No CABG: No Valve Surgery: No Report Signatures Finalized by:Thai Hu MD on 11/03/2019 4:30:41 PM
--- NOTE | 2019-10-15 12:25 | PC.NURSE ---
1200 recd from ccl post athrectomy. sheath to right groin. palpable pulses to left pop. dp. p.t.
[2019-10-15 13:24] LABS: Glucose Point of Care 131 mg/dL (70-110)
[2019-10-15] MEDS: TRAMadol 50 mg Tablet PO (13:33)
[2019-10-15] MEDS: sodium chloride 0.9% 1,000 ML 100 ML IV ×2 (14:10→23:00)
[2019-10-15] MEDS: atorvastatin 40 mg Tablet 80 MG PO (15:23)
[2019-10-15 15:42] LABS: Partial Thromboplastin Time 68.5 SECONDS (23.9-36.7)
--- NOTE | 2019-10-15 16:40 | PC.NURSE ---
Home med list reconciled against pt home prescription bottles;that was brought with pt during transfer from [facility], and against pt personal med list.
[2019-10-15 17:16] LABS: Glucose Point of Care 122 mg/dL (70-110)
[2019-10-15 17:29] LABS: Partial Thromboplastin Time 33.5 SECONDS (23.9-36.7)
--- NOTE | 2019-10-15 18:00 | PC.NURSE ---
sheath removed from right groin, intact. pressure held for 10 min. no oozing, no hematoma. pressure dressing applied. instructed to not raise head from pillow. to call for warm feeling in groin. to clasp groin if needing to cough.no palpable pulses to lower ext. prior to procedure. cap refil at 3 sec.
[2019-10-15] MEDS: lisinopril 20 mg Tablet PO (18:14)
[2019-10-15] MEDS: HYDROcodone-acetaminophen 10-325 mg Tablet 1 TAB PO (18:21)
--- NOTE | 2019-10-15 18:30 | PC.NURSE ---
1830 no change in right groin site lower ext. warm to touch. refil 3 sec. no hematoma formation. pressure held so pt. could cough.
[2019-10-16] VITALS (16 sets, daily range): BP systolic 113–166; BP diastolic 66–100; PULSE 67–89; RESP 13–22; TEMP 35.9–37.1; O2SAT 93–99
[2019-10-16] MEDS: rivaroxaban 10 mg Tablet PO ×2 (00:43→08:03)
[2019-10-16 04:44] LABS: Basophils # 0.1 10^3/uL (0.0-0.1); Basophils % 1.1 %; Eosinophils # 0.2 10^3/uL (0.0-0.8); Eosinophils % 3.7 %; Hematocrit 40.2 % (42.0-52.0); Hemoglobin 12.8 g/dL (11.7-16.6); Lymphocytes # 1.8 10^3/uL (0.8-4.8); Lymphocytes % 31.6 %; Mean Corpuscular HGB Conc 31.8 g/dL (30.0-36.0); Mean Corpuscular Hemoglobin 31.1 pg (28.0-34.0); Mean Corpuscular Volume 97.8 fL (80-94); Mean Platelet Volume 9.9 fL (7.4-10.4); Monocytes # 0.7 10^3/uL (0.2-0.9); Monocytes % 13.1 %; Neutrophils # 2.9 10^3/uL (1.8-7.7); Neutrophils % 50.3 %; Nucleated Red Blood Cells % 0 %; Platelet Count 180 10^3/cmm (130-400); Red Blood Count 4.11 10^6/uL (4.1-5.3); Red Cell Distribution Width 12.8 % (12.1-15.1); White Blood Count 5.7 10^3/uL (4.0-10.0)
[2019-10-16 05:04] LABS: Anion Gap 11.8 (5-19); Blood Urea Nitrogen 20 mg/dL (8-23); Calcium 9.1 mg/dL (8.5-10.5); Carbon Dioxide 28 mmol/L (22-29); Chloride 103 mmol/L (98-107); Glucose 127 mg/dL (65-115); Osmolality Calculated 284 mOsm/kg (285-295); Potassium 4.8 mmol/L (3.5-5.1); Sodium 138 mmol/L (136-145)
[2019-10-16] MEDS: TRAMadol 50 mg Tablet PO (06:17)
[2019-10-16 07:22] LABS: Glucose Point of Care 133 mg/dL (70-110)
[2019-10-16] MEDS: lisinopril 20 mg Tablet PO (08:03)
[2019-10-16] MEDS: atorvastatin 40 mg Tablet 80 MG PO (08:03)
[2019-10-16] MEDS: HYDROcodone-acetaminophen 10-325 mg Tablet 1 TAB PO (08:07)
--- NOTE | 2019-10-16 11:22 | PM.SDS ---
Short Stay Summary Providers Date of Admit/Discharge: 10/16/19 Attending Provider: Thai Hu MD Primary Care Provider: Jason Mcdaniel MD Chief Complaint: peripheral diagostic HPI History of Present Illness Mio Crawford is a 69 year old male for lifestyle limiting claudication underwent peripheral angiogram he was found to have mid to distal tandem highly calcified moderate to severe stenosis of left SFA and very short severe stenosis of mid popliteal artery with eccentric 90% lesion. CSI atherectomy with balloon angioplasty of popliteal and distal SFA was performed. Good angiographic result was achieved. Dissection of mid popliteal artery was also noted which was treated with balloon angioplasty patient flow remained stable and good. Patient has good anterior and posterior tibial pulse by Doppler. Patient is started on apixaban and aspirin. Patient will be brought back for right mid SFA subtotal occlusion for lifestyle limiting claudication in 2 to 3 weeks. His right groin looks good. He is being discharged home today. Review of Systems Skin/Breast: Reports: surgical incision (He reports healing without complication) Home Meds/Allergies Home Medications and Allergies Home Medications Medication Instructions Recorded Confirmed Type atorvastatin 80 mg tablet 80 mg PO DAILY 05/20/19 10/15/19 History baclofen 10 mg tablet 10 mg PO BID PRN 05/20/19 10/14/19 History benazepril 20 mg tablet 20 mg PO BID 05/20/19 10/15/19 History docusate sodium 100 mg capsule 100 mg PO PRN 05/20/19 10/15/19 History metformin 500 mg tablet 500 mg PO BID 05/20/19 10/15/19 History multivitamin,yo-rfdf-fiwyfjsi 1 tab PO DAILY 05/20/19 10/15/19 History tramadol 50 mg tablet 50 mg PO BID PRN 05/20/19 10/14/19 History Anoro Ellipta 1 ea INHALATION DAILY 05/30/19 10/15/19 History diphenhydramine HCl 25 PO PRN PRN MDD 25 MG 10/15/19 History gabapentin 1 PO BID 10/15/19 History Allergies Allergy/AdvReac Type Severity Reaction Status Date / Time No Known Allergies Allergy Verified 10/14/19 11:03 PFSH Acute PFSH: Medical History Cervical disc disorder with myelopathy of mid-cervical region Claudication Diabetes Hypertension PAD (peripheral artery disease) Surgical History History of cholecystectomy History of lumbar surgery (~01/09/01) History of right hip replacement Post-operative state S/P cervical spinal fusion 05/30/2019 Dr. Capo Clement C5-C6, C6-C7 ACDFF, C6 corpectomy Family History Mother Cancer Father CAD (coronary artery disease) Social History Smoking and tobacco status: former smoker Alcohol intake: former Household members: spouse Marital status: Current occupational status: retired History of recent travel: No Dietary Habits: Current diet type/program: regular Caffeine: Yes Caffeine intake frequency: coffee Number of coffee servings: 3 Exercise: What type of physical activity do you participate in?: none Safety: Seatbelt use: always Vitals/I&O/Wt Last Vital Signs Temp 98.2 F 10/16/19 10:00 Pulse 80 10/16/19 10:00 Resp 22 H 10/16/19 10:00 BP 132/77 10/16/19 10:00 Pulse Ox 93 10/16/19 10:00 10/15/19 10/16/19 10/16/19 22:59 06:59 14:59 Intake Total 325 / 775 1000 / 1775 1400 / 1400 Output Total 175 / 325 500 / 825 450 / 450 Balance 150 / 450 500 / 950 950 / 950 Physical Exam Narrative: EXAM NARRATIVE: GENERAL: Patient is alert, awake and oriented x3. NECK: No jugular vein distension. HEENT: No cyanosis. No icterus. No pallor. HEART: Regular S1 and S2. No murmur, rub or gallop. LUNGS: Clear to auscultate bilaterally. ABDOMEN: Soft, nontender and nondistended. Positive bowel sounds. No guarding, rebound or tenderness. CENTRAL NERVOUS SYSTEM: Grossly nonfocal. EXTREMITIES: Lower extremities without edema bilaterally. 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 Hold while taking hydrocodone atorvastatin 80 mg tablet 80 mg PO DAILY RF: 0 metformin 500 mg tablet 500 mg PO BID RF: 0 benazepril 20 mg tablet 20 mg PO BID RF: 0 docusate sodium [Colace] 100 mg capsule 100 mg PO PRN RF: 0 Complete Multivitamin Tablet 1 tab PO DAILY RF: 0 Anoro Ellipta 62.5-25 mcg/actuation blister with device 1 ea INHALATION DAILY RF: 0 hydrocodone-acetaminophen [[place]] 10-325 mg tablet 1 tab PO Q4H MDD 5 tabs PRN (Reason: pain) Qty: 30 RF: 0 gabapentin 100 MG 1 PO BID RF: 0 diphenhydramine HCl 25 MG 25 PO PRN MDD 25 MG PRN (Reason: Allergic Symptoms) RF: 0 Discontinued cilostazol 50 mg tablet 50 mg PO BID RF: 0 Hold Instructions: Resume on 06/02/19. naproxen sodium 220 MG PO PRN MDD 220 MG PRN (Reason: Pain) RF: 0 Discharge Orders: Discharge Order (Routine); Ordered 10/16/19 Ordered By: Thai Hu Referrals: Thai Hu MD [Physician] - 4-7 days (follow up [facility] at 11:00 ) Discharge Diet: Low Salt Discharge Activity: Increase activity as tolerated Patient Instructions: Aspirin (By mouth), Pantoprazole (By mouth), Rivaroxaban (By mouth), Angiogram (DC), Peripheral Vascular Stent Placement (DC), Peripheral Artery Disease (DC), Low Sodium Diet (DC), Peripheral Vascular Angioplasty (DC), Post Angiogram Home Care Instructions Activity Restrictions/Additional Instructions: Schedule patient for lifestyle limiting claudication of right leg Discharge Date/Time: 10/16/19 12:50 Attestations Medical Necessity Statement*: Patient can be discharged home Time Spent in Patient Care*: less than 30 min Quality Metrics Clinical Quality Measures: During this hospital stay, did patient experience: None Coding Level of Care Code Established Pt Acute Communications Systems Engineer for Chg Fwd Patient Type Established History Expanded Problem Focused Exam Expanded Problem Focused Medical Decision Making Moderate Complexity
[2019-10-16 11:23] LABS: Glucose Point of Care 158 mg/dL (70-110)
--- NOTE | 2019-10-16 13:07 | PC.NURSE ---
Discharged Patient given discharge instructions, signed, verbal understanding, no further questions. IV removed. Helped patient change into clothing. Patient then wheeled to private vehicle by this nurse. driving. Patient and have no questions. Patient discharged at 1250.
== END 2019-10-16 12:50 | disposition home or self-care (01) ==
LOC: ICU 11:57
PROVIDERS: Admitting Provider Internal Medicine Cardiovascular Disease; PCP Family Medicine; Visit Provider Internal Medicine Cardiovascular Disease
DX: I70.211 Atherosclerosis of native arteries of extremities with intermittent claudication, right leg (principal); E11.9 Type 2 diabetes mellitus without complications; Z79.84 Long term (current) use of oral hypoglycemic drugs; I10 Essential (primary) hypertension; Z82.49 Family history of ischemic heart disease and other diseases of the circulatory system; Z87.891 Personal history of nicotine dependence; Z98.1 Arthrodesis status
CPT/HCPCS: 12345; 36415; 36416; 37225; 75625; 75716; 80048; 82962; 85025; 85730; 96360; 96361; 96372; C1724; C1725; C1769; C1887; C1894; G0378; J1644; J1815; J2001; J2250; J3010; J3490; J7030; Q0163; Q9967

== ENCOUNTER → 2019-10-22 12:05 | Outpatient (BNVA) | payer MEDICARE, SELFPAY | PROVIDERS: PCP Family Medicine; Visit Provider Nurse Practitioner Family | DX: I73.9 Peripheral vascular disease, unspecified (principal) | CPT/HCPCS: 80048 ==

== ENCOUNTER → 2019-11-19 14:34 | Outpatient (BNVA) | payer MEDICARE, SELFPAY | PROVIDERS: PCP Family Medicine; Visit Provider Internal Medicine | DX: Z01.812 Encounter for preprocedural laboratory examination (principal) | CPT/HCPCS: 87635 ==

== ENCOUNTER 2019-11-21 10:05 | Observation (INO) | payer MEDICARE, SELFPAY ==
[2019-11-19 15:08] LABS: Basophils # 0.1 10^3/uL (0.0-0.1); Basophils % 0.8 %; Eosinophils # 0.2 10^3/uL (0.0-0.8); Hematocrit 42.2 % (42.0-52.0); Hemoglobin 13.7 g/dL (11.7-16.6); Lymphocytes # 2.4 10^3/uL (0.8-4.8); Lymphocytes % 31.8 %; Mean Corpuscular HGB Conc 32.5 g/dL (30.0-36.0); Mean Corpuscular Volume 95.5 fL (80-94); Mean Platelet Volume 9.8 fL (7.4-10.4); Monocytes # 0.8 10^3/uL (0.2-0.9); Neutrophils # 3.93 10^3/uL (1.8-7.7); Neutrophils % 53.3 %; Nucleated Red Blood Cells % 0 %; Platelet Count 239 10^3/cmm (130-400); Red Blood Count 4.42 10^6/uL (4.1-5.3); Red Cell Distribution Width 12.8 % (12.1-15.1); White Blood Count 7.4 10^3/uL (4.0-10.0)
[2019-11-19 15:18] LABS: INR 1.02 (0.83-1.21); Prothrombin Time (Patient) 13.7 Seconds (12.0-15.1)
[2019-11-19 15:42] LABS: Anion Gap 16.5 (5-19); Blood Urea Nitrogen 18 mg/dL (8-23); Calcium 9.3 mg/dL (8.5-10.5); Carbon Dioxide 24 mmol/L (22-29); Chloride 104 mmol/L (98-107); Glucose 98 mg/dL (65-115); Osmolality Calculated 286 mOsm/kg (285-295); Potassium 4.5 mmol/L (3.5-5.1); Sodium 140 mmol/L (136-145)
[2019-11-21] VITALS (39 sets, daily range): BP systolic 95–167; BP diastolic 57–91; PULSE 66–89; RESP 16–17; TEMP 36.4–36.9; O2SAT 93–98; BMI 27.1
--- NOTE | 2019-11-21 07:36 | XACV_ITS ---
Wt: 88 kg BSA: 2.12 m2 Any Known Allergies: No known allergies Gender: Male : 1950 Exam Type: Invasive Peripheral Vascular Procedure(s): Procedure Description: Peripheral Cath Diagnostic Procedure Procedure Description: Abdominal aortic angiography Procedure Description: Lower extremities' angiography Procedure Description: Peripheral vascular Intervention Procedure Description: PV Balloon Procedure Description: PV Atherectomy Exam Priority: Routine Lower Extremity Interventional Findings Left common femoral approach was adopted after placing long sheath. We were able to cross the lesion after somewhat difficulty with the help of seeker and Glidewire. Lesions were tight and calcified in the mid to distal region. Viper wire was exchanged. CSI atherectomy performed using 2.0 bur in mid to distal segment of the right SFA. [place] 6100 mm balloon was performed. Good angiographic result with good flow was achieved. Good two-vessel runoff was noted below the knee. Conclusions Indication: Lifestyle limiting claudication of right legSelected peripheral angiogram was performed Right SFA has mid to distal highly calcified tandem significant stenosis., Right popliteal and tibioperoneal trunk has luminal irregularities. Right anterior tibial appeared to be occluded but reconstituted in the distal segment. Posterior tibial has luminal irregularity with good flow up to ankle. Access Site Site: Left Femoral artery Sheath Size: 6 Fr Hemost... Method: Suture Hemost... Success: Successful Procedure Details Findings Procedure Consent Obtained. Pre-Procedure Time Out. Identified patient by full name and date of as verbalized by the patient/guarantor. Does the consent match the physician's order: Yes. Accurate & Complete Informed Consent: Yes. Inpatient/Outpatient History & Physical on Chart: Yes. If H&P is completed, is and addenduem needed: No; If yes, is the addendum complete: N/A. Visualize and Verify Site with Patient/Guarantor: N/A. Relevant Radiology Images available: Yes. Pre-op teaching completed and patient verbalized understanding. The risks, benefits, and alternatives of sedation and/or procedure were discussed by physician. The patient agrees to continue. Procedure started. Current diagnosis: PAD. PERRLA. Strong, equal hand security patrol driver bilaterally. Lungs clear x 5 lobes. IV Site on Arrival: 20 gauge in the left anticubital. IV Fluids: 0.9% NaCl at KVO. 0 mL infused prior to earth science laboratory technician. Pre Procedural Pulses: left dorsalis pedis was 2+. Pre Procedural Pulses: right dorsalis pedis was Doppled. Pre Procedural Pulses: left posterior tibial was 1+. Pre Procedural Pulses: right posterior tibial was Doppled. Oxygen started at 2liters/min via nasal canula. bilateral groins was prepped with chloroprep then draped in the usual sterile fashion. Physician notified. Baseline sample Acquired. HR: 82 BPM. Physician arrived. Equipment: Peripheral. Physician scrubbed in. Dr. Cuevas scrubbed in with Dr. Hu. Immediate Pre-Procedure Time Out. Correct Patient: Yes; Correct Procedure: Yes; Correct Site: Yes; Correct Patient Position: Yes; Correct Supplies: Yes; Dried Flammable Prep: Yes; Blood Products Available: No;. Lidocaine 1% infiltrated to the left groin. Arterial access obtained with micropuncture set. Rim catheter in over the glidewire. Catheter out over the glidewire. 6FR sheath exchanged for a 6FR 142cm sheath. Runoff of right leg performed at 10ml for a total of 30ml. Seeker inserted over the glidewire. Glidewire out. Seeker removed. 2.0 Roya used. Side port of sheath attached to Normal Saline flush at KVO to maintain patency. Performing orbital Atherectomy. Device removed. Seeker inserted over the viper wire. Seeker out over the viperwire. Glidewire inserted. Viperwire out. Results checked. Inflation number : 1 A AB ARMADA 35 OTW [id number] was prepped and advanced across the Superficial Femoral, Right , then inflated to 6 SHIV for 1:03 seconds. Inflation number: 2 The AB ARMADA 35 OTW [id number] was reinflated across the Superficial Femoral, Right, to 6 SHIV for 1:04 seconds. Runoff of right leg performed at 10mL for a total of 40mL. 6FR flexor sheath exchanged for a 6FR short sheath. Medication's Wasted: Lidocaine 1% = 3 mL. Medication's Wasted: Nitro = 49.8 mg. Medication's Wasted: Heparin = 2000 units. Sheath(s) sutured into position with 2-0 silk and sterile 4x4's and Op-site applied over the site. No oozing or signs and symptoms of hematoma noted. A Suture was successful obtaining hemostatsis at the Left Femoral artery insertion site. Post Procedure: Pulses reassessed and unchanged. PERRLA. Strong, equal hand security patrol driver bilaterally. No VTE prophylaxis required. Total IV fluids: 100 mL. Contrast type used: Visipaque 320 mgI/mL, 500 mL bottle. Post-op diagnosis: PAD. Complications: None. Estimated blood loss: 5mL-10mL. Vital chart was stopped. Procedure completed. Patient transferred by bed to 1st floor. Arterial sheath flushed and connected to tranducer and pressure bag with heparinized saline. Procedure Medications Start: 8:34 AM Stop: 8:34 AM Medication: Versed Amount: 1 mg Route: I.V. Start: 8:34 AM Stop: 8:34 AM Medication: Fentanyl Amount: 50 mcg Route: I.V. Start: 8:50 AM Stop: 8:50 AM Medication: Versed Amount: 1 mg Route: I.V. Start: 8:55 AM Stop: 8:55 AM Medication: Fentanyl Amount: 25 mcg Route: I.V. Start: 8:56 AM Stop: 8:56 AM Medication: Fentanyl Amount: 25 mcg Route: I.V. Start: 8:59 AM Stop: 8:59 AM Medication: Versed Amount: 1 mg Route: I.V. Start: 9:12 AM Stop: 9:12 AM Medication: Heparin Amount: 2000 units Route: I.V. Start: 9:17 AM Stop: 9:17 AM Medication: Fentanyl Amount: 25 mcg Route: I.V. Start: 9:17 AM Stop: 9:17 AM Medication: Versed Amount: 1 mg Route: I.V. Start: 9:22 AM Stop: 9:22 AM Medication: Fentanyl Amount: 25 mcg Route: I.V. Start: 9:24 AM Stop: 9:24 AM Medication: Versed Amount: 1 mg Route: I.V. Start: 9:32 AM Stop: 9:32 AM Medication: Versed Amount: 1 mg Route: I.V. Start: 9:33 AM Stop: 9:33 AM Medication: Nitrogylcerin Amount: 200 mcg Route: I.A. I, the attending physician, have reviewed and verified all procedure medications. Yes, all medications given per verbal order History/Risk Factors Hypertension: Yes Dyslipidemia: Yes Diabetic Therapy: Oral Peripheral Arterial Disease (PAD): Yes Myocardial Infarction (VT): No Obesity: No Renal Disease: No Tobacco Use: Former Prior Interventions PCI: No CABG: No Valve Surgery: No Report Signatures Finalized by:Thai Hu MD on 12/04/2019 6:35:46 PM
[2019-11-21] MEDS: diphenhydrAMINE 50 mg Capsule PO (07:45)
--- NOTE | 2019-11-21 08:39 | W.PM.OPSUD ---
Surgery/Procedure H&P Update DATE OF PROCEDURE: November 21, 2019 DATE H&P PERFORMED: 10/15/19 H&P UPDATE INFORMATION: I have examined patient prior to procedure and No changes to prior documentation PREOP DIAGNOSIS: Lifestyle limiting claudication of the right leg despite of optimization of medicine and conservative management. PLANNED PROCEDURE: Operation Date: 11/21/19 08:30 Proposed Procedures p Peripheral Diagnostic(Not Applicable) - Thai Hu MD PATIENT REASSESSED PRIOR TO SEDATION, WITH NO CHANGE NOTED: Yes PHYSICAL EXAM: alert, oriented x 3, clear to auscultation bilaterally and regular rate & rhythm AIRWAY EVAL/ANESTHESIA PLAN: ASA II, Risks, benefits & alternatives of sedation and/or procedure discussed and Patient agrees to continue as planned
[2019-11-21] MEDS: sodium chloride 0.9% 1,000 ML 100 ML IV (10:00)
--- NOTE | 2019-11-21 10:00 | PC.NURSE ---
Patient arrived to floor from slab polisher. 2 nurse verification of site, asymptomatic. Pulses slightly diminished when palpated, strong when Doppler was used. Patient educated on activity restriction. Patient was noncompliant and continued to move in bed. Nurse continued to educate patient of associated risks. Patient was repositioned and was then able to rest comfortably. Site reassessed, asymptomatic. Nurse to continue to monitor site. Patient orientated to room and call light. No further needs identified at this time.
--- NOTE | 2019-11-21 10:15 | PC.NURSE ---
Dr. Hu at bedside. Verbal order to check aPTT at 1100. If less than 45, pull sheath now.
--- NOTE | 2019-11-21 11:00 | PC.NURSE ---
Dr. Hu notified of PTT result. Physician gave verbal order to pull sheath now even though PTT is 48.4.
[2019-11-21 11:14] LABS: Partial Thromboplastin Time 48.4 SECONDS (23.9-36.7)
[2019-11-21 11:17] LABS: Glucose Point of Care 110 mg/dL (70-110)
--- NOTE | 2019-11-21 12:45 | PC.NURSE ---
Sheath pulled at 1216 per protocol. Direct pressure held for 20 minutes until hemostasis was achieved. Patient tolerated well. No complications noted. Dressing placed, CDI. Nurse to continue to monitor.
[2019-11-21 17:10] LABS: Glucose Point of Care 174 mg/dL (70-110)
[2019-11-21] MEDS: lisinopril 20 mg Tablet PO (17:18)
[2019-11-21] MEDS: HYDROcodone-acetaminophen 10-325 mg Tablet 1 TAB PO (17:59)
--- NOTE | 2019-11-21 18:11 | PM.SDS ---
Short Stay Summary Providers Date of Admit/Discharge: 11/21/19 Attending Provider: Thai Hu MD Primary Care Provider: Jason Mcdaniel MD Chief Complaint: peripheral diagnostci HPI History of Present Illness Mio Crawford is a 69 year old male for worsening of right leg lifestyle limiting claudication and mid to distal severe highly calcified SFA stenosis underwent peripheral angiogram CSI atherectomy and balloon angioplasty with good angiographic result. Below the knee two-vessel runoff was noted including posterior tibial and peroneal. Anterior tibial is chronically occluded. Patient had peripheral angiogram and balloon angioplasty along with atherectomy of the left SFA 3 weeks ago he is pretty happy with the result and think that his leg is much better and he can walk around. Today he would like to go home he has completed bedrest and doing fine. There is no hematoma. We will discharge him. He will follow up with Leanne Teixeira in cardiology clinic Home Meds/Allergies Home Medications and Allergies Home Medications Medication Instructions Recorded Confirmed Type atorvastatin 80 mg tablet 80 mg PO DAILY 05/20/19 11/20/19 History baclofen 10 mg tablet 10 mg PO BID PRN 05/20/19 11/20/19 History benazepril 20 mg tablet 20 mg PO BID 05/20/19 11/20/19 History docusate sodium 100 mg capsule 100 mg PO PRN 05/20/19 11/20/19 History metformin 500 mg tablet 500 mg PO BID 05/20/19 11/20/19 History multivitamin,ji-gkgq-jrefdrtg 1 tab PO DAILY 05/20/19 11/20/19 History tramadol 50 mg tablet 50 mg PO BID PRN 05/20/19 11/20/19 History Anoro Ellipta 1 ea INHALATION DAILY 05/30/19 11/20/19 History gabapentin 1 PO BID 10/15/19 History Allergies Allergy/AdvReac Type Severity Reaction Status Date / Time No Known Allergies Allergy Verified 11/05/19 13:10 PFSH Acute PFSH: Medical History Cervical disc disorder with myelopathy of mid-cervical region Claudication Diabetes Hypertension PAD (peripheral artery disease) Surgical History History of cholecystectomy History of lumbar surgery (~01/09/01) History of right hip replacement Post-operative state S/P cervical spinal fusion 05/30/2019 Dr. Capo Clement C5-C6, C6-C7 ACDFF, C6 corpectomy Family History Mother Cancer Father CAD (coronary artery disease) Social History Smoking and tobacco status: former smoker Alcohol intake: former Household members: spouse Marital status: Current occupational status: retired History of recent travel: No Vitals/I&O/Wt Last Vital Signs Temp 98.1 F 11/21/19 15:31 Pulse 76 11/21/19 15:31 Resp 17 11/21/19 15:31 BP 142/75 11/21/19 15:31 Pulse Ox 95 11/21/19 15:31 11/21/19 11/21/19 11/21/19 06:59 14:59 22:59 Intake Total 240 / 240 840 / 1080 Output Total 300 / 300 400 / 700 Balance -60 / -60 440 / 380 Weight last 48 hrs Weight 195 lb Physical Exam Narrative: EXAM NARRATIVE: GENERAL: Patient is alert, awake and oriented x3. NECK: No jugular vein distension. HEENT: No cyanosis. No icterus. No pallor. HEART: Regular S1 and S2. No murmur, rub or gallop. LUNGS: Clear to auscultate bilaterally. ABDOMEN: Soft, nontender and nondistended. Positive bowel sounds. No guarding, rebound or tenderness. CENTRAL NERVOUS SYSTEM: Grossly nonfocal. EXTREMITIES: Lower extremities without edema bilaterally. 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 Hold while taking hydrocodone atorvastatin 80 mg tablet 80 mg PO DAILY RF: 0 metformin 500 mg tablet 500 mg PO BID RF: 0 benazepril 20 mg tablet 20 mg PO BID RF: 0 docusate sodium [Colace] 100 mg capsule 100 mg PO PRN RF: 0 Complete Multivitamin Tablet 1 tab PO DAILY RF: 0 pantoprazole 40 mg tablet,delayed release (DR/EC) 40 mg PO DAILY 56 Days Qty: 90 RF: 3 rivaroxaban 2.5 mg tablet 2.5 mg PO BID Qty: 30 RF: 3 Anoro Ellipta 62.5-25 mcg/actuation blister with device 1 ea INHALATION DAILY RF: 0 hydrocodone-acetaminophen [[place]] 10-325 mg tablet 1 tab PO Q4H MDD 5 tabs PRN (Reason: pain) Qty: 30 RF: 0 gabapentin 100 MG 1 PO BID RF: 0 aspirin 81 mg tablet,delayed release (DR/EC) 81 mg PO DAILY Qty: 90 RF: 3 Discharge Orders: Discharge Order (Routine); Ordered 11/21/19 Ordered By: Thai Hu Referrals: Leanne Teixeira FNP [Nurse Practitioner] - 1 week ([facility] [place] [facility] will be calling to schedule a post procedure followup with Leanne Teixeira to be seen in 1 week. If you don't hear from them by Tomorrow afternoon, please give them a call. Thank you) Discharge Diet: Cardiac Discharge Activity: Increase activity as tolerated Patient Instructions: Peripheral Vascular Angioplasty (DC), Post Angiogram Home Care Instructions Activity Restrictions/Additional Instructions: No lifting of more than gallon of milk for the next 3 days. You can start your apixaban from tomorrow Attestations Medical Necessity Statement*: Patient may can be discharged Time Spent in Patient Care*: less than 30 min Specific Discharge Activities: Specific discharge activities: educating patient Quality Metrics Clinical Quality Measures: During this hospital stay, did patient experience: None Coding Level of Care Code Acute Registered Nurse Maternal Child for Rody Tucker
--- NOTE | 2019-11-21 18:15 | PC.NURSE ---
Patient ambulated after completing 6 hours bed rest requirement. Insertion site reassessed, asymptomatic. Nurse to continue to monitor.
--- NOTE | 2019-11-21 18:46 | PC.NURSE ---
Discharge instructions given per the physician's instructions. Patient verbalized understanding of post angiogram care instructions, no further questions. IV has been removed. Patient dressed self. Patient contacted for dc. Dr. Hu at bedside to see patient.
== END 2019-11-21 18:55 | disposition home or self-care (01) ==
LOC: CSU 18:06
PROVIDERS: Admitting Provider Internal Medicine Cardiovascular Disease; PCP Family Medicine; Visit Provider Internal Medicine Cardiovascular Disease
DX: I70.92 Chronic total occlusion of artery of the extremities (principal); E11.51 Type 2 diabetes mellitus with diabetic peripheral angiopathy without gangrene; I10 Essential (primary) hypertension; Z79.84 Long term (current) use of oral hypoglycemic drugs; Z87.891 Personal history of nicotine dependence
CPT/HCPCS: 12345; 36415; 36416; 37225; 75710; 80048; 82962; 85025; 85730; 96360; 96361; C1724; C1725; C1769; C1887; C1894; G0378; J1644; J2250; J3010; J3490; J7030; Q0163; Q9967

== ENCOUNTER → 2019-11-28 11:44 | Outpatient (BNVA) | payer MEDICARE, SELFPAY | PROVIDERS: PCP Family Medicine; Visit Provider Nurse Practitioner Family | DX: I73.9 Peripheral vascular disease, unspecified (principal) | CPT/HCPCS: 80048 ==

== ENCOUNTER 2020-08-18 08:35 | Outpatient (CLI) | payer MEDICARE, SELFPAY ==
--- NOTE | 2020-08-18 08:47 | CT_ITS ---
WS: [id number] LDCT LUNG CANCER SCREENING HISTORY: HX OF TOBACCO USE TECHNIQUE: Axial imaging performed from the apices to 1 cm below the costophrenic angles. Coronal and sagittal reformats are submitted with axial MIP series. All CT scans at [facility] use at least one of these dose optimization techniques: automated exposure control; mA and/or kV adjustment per patient size (includes targeted exams where dose is matched to clinical indication); or iterativ e reconstruction. DLP: 66.46 mGy.cm DIvol: 1.58 mGy COMPARISON: 06/02/2006 Diagnostic quality: Satisfactory Lung Nodules: No suspicious nodules are identified. There is a benign granuloma RIGHT lower lobe. The re is very mild interstitial thickening in the distal airways. No nodules. Lungs: Chronic emphysema. Heart: Normal size. Moderate atherosclerotic calcifications in the LEFT anterior descending coronary artery. Other findings: Small hiatal hernia. Mild atherosclerosis thoracic aorta. Prior cholecystectomy. CT/CT lung screening [id number] IMPRESSION: LUNG-RADS: 1S-Negative with Significant Findings FOLLOW UP: 12 Month: Continue annual screening with LDCT OTHER FINDINGS (S MODIFIER): Moderate LEFT anterior descending coronary artery atherosclerosis. Consider cardiology evaluation.
== END 2020-08-18 08:36 | disposition home or self-care (01) ==
LOC: RAD 08:39
PROVIDERS: PCP Family Medicine; Visit Provider Family Medicine
DX: Z12.2 Encounter for screening for malignant neoplasm of respiratory organs (principal); Z87.891 Personal history of nicotine dependence; K44.9 Diaphragmatic hernia without obstruction or gangrene; I70.0 Atherosclerosis of aorta; Z90.49 Acquired absence of other specified parts of digestive tract
CPT/HCPCS: 71271

== ENCOUNTER → 2020-08-25 08:30 | Outpatient (BNVA) | payer MEDICARE, SELFPAY | PROVIDERS: PCP Family Medicine; Referring Provider Orthopaedic Surgery; Visit Provider Anesthesiology Pain Medicine | DX: M54.9 Dorsalgia, unspecified (principal); M50.020 Cervical disc disorder with myelopathy, mid-cervical region, unspecified level; M43.12 Spondylolisthesis, cervical region; M48.50XA Collapsed vertebra, not elsewhere classified, site unspecified, initial encounter for fracture; M47.816 Spondylosis without myelopathy or radiculopathy, lumbar region; M51.16 Intervertebral disc disorders with radiculopathy, lumbar region; M46.00 Spinal enthesopathy, site unspecified; X58.XXXA Exposure to other specified factors, initial encounter; Z98.1 Arthrodesis status | CPT/HCPCS: 99205 ==

== ENCOUNTER 2022-02-24 07:16 | Outpatient (CLI) | payer MEDICARE, SELFPAY ==
--- NOTE | 2022-02-24 | CT_ITS ---
WS: [id number] LDCT LUNG CANCER SCREENING TECHNIQUE: Noncontrast CT of the chest with coronal and sagittal reformatted images. CLINICAL INFORMATION: SCREENING COMPARISON: August 18, 2020 DLP: 85.90 mGy.cm DIvol: Mean CTDIvol: 1.60 (mGy) All CT scans at [facility] use at least one of these dose optimization techniques: automat ed exposure control; mA and/or kV adjustment per patient size (includes targeted exams where dose is matched to clinical indication); or iterative reconstruction. FINDINGS: Moderate chronic emphysematous changes. No acute pulmonary infiltrates. No focal pneumonia or pleural fluid. Calcified granuloma RIGHT lower lobe. Aortic calcification. Coronary calcification. No mediastinal or hilar lymphadenopathy. No axillary ly mphadenopathy. Cholecystectomy clips. Adrenal glands are normal. Small esophageal hiatal hernia. Hypertrophic changes thoracic spine. ACDF lower cervical spine. CT/CT lung screening [id number] IMPRESSION: LUNG-RADS: 1-Negative FOLLOW UP: 12 Month: Continue annual screening with LDCT
== END 2022-02-24 07:17 | disposition home or self-care (01) ==
LOC: RAD 07:17
PROVIDERS: PCP Family Medicine; Visit Provider Family Medicine
DX: Z12.2 Encounter for screening for malignant neoplasm of respiratory organs (principal); Z87.891 Personal history of nicotine dependence
CPT/HCPCS: 71271

== ENCOUNTER 2022-09-01 13:58 | Outpatient (CLI) | payer MEDICARE, SELFPAY ==
--- NOTE | 2022-09-01 14:10 | XR_ITS ---
WS: [id number] DEXA (DUAL ENERGY X-RAY ABSORPTIOMETRY) Bone mineral density was performed using a [employer] machine. HISTORY: OTHER SPECIFIC DISORDERS OF BD STRUCTURES COMPARISON: None available. Lumbar spine BMD (L2-L4): 2.290 T score: 8.8 Z score: 9.3 Total hip BMD: Left: 1.176 (g/cm2). T score: 0.5 (no units) Z score: 1.3 (no units) Left forearm BMD: 0.952 g/cm2. T score: -0.4 Z score: 0.6 10 year probability of a major osteoporotic fracture is 8.2%. XR/XR DEXA axial skeleton* [id number] IMPRESSION: NORMAL BONE MINERAL DENSITY.
== END 2022-09-01 13:59 | disposition home or self-care (01) ==
LOC: RAD 14:02
PROVIDERS: PCP Family Medicine; Visit Provider Family Medicine
DX: M85.88 Other specified disorders of bone density and structure, other site (principal)
CPT/HCPCS: 77080

== ENCOUNTER → 2022-09-26 08:35 | Outpatient (BNVA) | payer MEDICARE, SELFPAY | PROVIDERS: PCP Family Medicine; Referring Provider Family Medicine; Visit Provider Student in an Organized Health Care Education/Training Program | DX: M17.11 Unilateral primary osteoarthritis, right knee (principal) | CPT/HCPCS: 20610; 73560; 73565; 99204; J3301 ==

== ENCOUNTER 2023-02-27 08:16 | Outpatient (CLI) | payer MEDICARE, SELFPAY ==
--- NOTE | 2023-02-27 08:22 | CT_ITS ---
WS: [id number] LDCT LUNG CANCER SCREENING HISTORY: HX OF TOBACCO USE TECHNIQUE: Axial imaging performed from the apices to 1 cm below the costophrenic angles. Coronal and sagittal reformats are submitted with axial MIP series. All CT scans at [facility] use at least one of these dose optimization techniques: automated exposure control; mA and/or kV adjustment per patient size (includes targeted exams where dose is matched to clinical indication); or iterativ e reconstruction. DLP: 69.19 mGy.cm DIvol: Mean CTDIvol: 1.20 (mGy) COMPARISON: 02/24/2022 Diagnostic quality: Satisfactory Lungs: Chronic emphysema. No pneumonia. Calcified granuloma RIGHT lower lobe. No endobronchial lesion s. Heart: Normal size heart with no pericardial effusion.. Moderate coronary artery calcifications. Other findings: Moderate atherosclerosis aorta. No aneurysm. Normal sized pulmonary artery. Small med iastinal and hilar lymph nodes. Small hiatal hernia. Prior cholecystectomy. No adrenal mass. IMPRESSION: CT/CT lung screening [id number] LUNG-RADS: 2-Benign Appearance or Behavior FOLLOW UP: 12 Month: Continue annual screening with LDCT OTHER FINDINGS (S MODIFIER): None.
== END 2023-02-27 08:17 | disposition home or self-care (01) ==
LOC: RAD 08:17
PROVIDERS: PCP Family Medicine; Visit Provider Family Medicine
DX: Z12.2 Encounter for screening for malignant neoplasm of respiratory organs (principal); Z87.891 Personal history of nicotine dependence
CPT/HCPCS: 71271

== ENCOUNTER → 2023-10-20 11:37 | Outpatient (BNVA) | payer MEDICARE, SELFPAY | PROVIDERS: PCP Family Medicine; Visit Provider Physician Assistant | DX: M17.11 Unilateral primary osteoarthritis, right knee (principal) | CPT/HCPCS: 20610; 73560; 73565; 99213; J3301 ==

== ENCOUNTER → 2024-02-29 08:46 | Outpatient (BNVA) | payer MEDICARE, SELFPAY | PROVIDERS: PCP Family Medicine; Visit Provider Physician Assistant | DX: M17.11 Unilateral primary osteoarthritis, right knee (principal) | CPT/HCPCS: 99214 ==